=== PATIENT | male | born 1995 | race Caucasian/White ===

== ENCOUNTER 2017-12-10 16:31 | Emergency (ER) | END 2017-12-10 19:46 | disposition home or self-care (01) ==

== ENCOUNTER 2018-03-18 16:39 | Emergency (ER) | END 2018-03-18 18:12 | disposition home or self-care (01) ==

== ENCOUNTER 2018-11-23 16:40 | Emergency (ER) | payer SELFPAY ==
[~2018-11-23] VITALS: Ht 172.7 cm; Wt 88.0 kg
[~2018-11-23 16:40] MED LIST: ACET325T33 PO; FAMO-96 PO; OMEP20CA16 PO; ONDA8TAB14 PO
[2018-11-23 17:01] VITALS: BP 156/81; PULSE 128; RESP 18; Ht 172.7 cm; Wt 88.0 kg
[2018-11-24] MEDS ORDERED: ONDA4TAB8 PO (12:58)
[2018-11-24] MEDS ORDERED: FAMO-96 PO (12:58)
== END 2018-11-23 22:16 | disposition left against medical advice (07) ==
LOC: FTE 16:40
DX: Z53.21 Procedure and treatment not carried out due to patient leaving prior to being seen by health care provider (principal)

== ENCOUNTER 2018-11-24 11:57 | Emergency (ER) | payer SELFPAY ==
[~2018-11-24] VITALS: Wt 89.0 kg
[2018-11-24 11:59] VITALS: BP 139/76; PULSE 90; RESP 18
[2018-11-24] MEDS ORDERED: ONDA4TAB8 PO (12:58)
[2018-11-24] MEDS ORDERED: FAMO-96 PO (12:58)
--- NOTE | 2018-11-24 13:01 | ERD ---
ER Documentation Chief Complaint Chief Complaint VOMITING HPI 23-year-old male presents the emergency department complaining of vomiting for 1 year. Patient states her for 1 year he has a burning sensation in his epigastric area with occasional nonbilious nonbloody emesis. He reports that this is been ongoing and chronic but not worse. He has been previous evaluated with normal diagnostic tests including lab work and ultrasound. Today he denies any localizing abdominal pain, fevers, diarrhea. ROS All systems reviewed and are negative except as per history of present illness. Medications Home Meds Active Scripts Famotidine* (Pepcid*) 20 Mg Tablet, 20 MG PO BID for 4 Days, #20 TAB Prov:HAO TRAYLOR 11/24/18 Ondansetron Hcl* (Zofran*) 4 Mg Tablet, 4 MG PO Q8H PRN for NAUSEA AND/OR VOMITING, #30 TAB Prov:HAO TRAYLOR 11/24/18 Acetaminophen* (Tylenol*) 325 Mg Tablet, 2 TAB PO Q6 PRN for PAIN AND OR ELEVATED TEMP, #30 TAB Prov:ENA REYEZ PA-C 03/18/18 Ondansetron (Ondansetron Odt) 8 Mg Tab.rapdis, 8 MG PO Q6H PRN for NAUSEA AND/OR VOMITING, #30 TAB Prov:ENA REYEZ PA-C 03/18/18 Omeprazole* (Omeprazole*) 20 Mg Capsule.dr, 20 MG PO BEFORE BREAKFAST, #30 Prov:ENA REYEZ PA-C 03/18/18 Famotidine* (Pepcid*) 20 Mg Tablet, 20 MG PO QHS for 7 Days, TAB Prov:ENA REYEZ PA-C 03/18/18 Allergies Allergies: Coded Allergies: No Known Allergy (Unverified , 03/18/18) PMhx/Soc History of Surgery: No Anesthesia Reaction: No Hx Neurological Disorder: No Hx Respiratory Disorders: No Hx Cardiac Disorders: No Hx Psychiatric Problems: No Hx Miscellaneous Medical Probl: Yes (anxiety) Hx Alcohol Use: No Hx Substance Use: Yes (marijuana) Hx Tobacco Use: No FmHx Noncontributory for chief complaint Physical Exam Vitals Vital Signs Date Temp Pulse Resp B/P (MAP) Pulse Ox O2 O2 Flow FiO2 Time Delivery Rate 11/24/18 97.6 90 18 139/76 99 11:59 (97) Physical Exam GENERAL: The patient is well developed and appropriate for usual state of health in no apparent distress HEENT: Pupils equal, round, and reactive to light. EOMI. There is no scleral icterus. NECK: C-spine is soft and supple, there is no meningismus. There is no cervical lymphadenopathy. LUNGS: Clear to auscultation bilaterally. There are no rales, wheezes or rhonchi. HEART: Regular rate and rhythm, no murmurs, clicks, rubs or gallops. ABDOMEN: Soft, non-tender, non-distended. There are bowel sounds in all four quadrants. No rebound or guarding. EXTREMITIES: There is no peripheral cyanosis or edema. No focal swelling or erythema. NEURO: The patient moves all four extremities with 5/5 strength. Cranial nerves II - XII are intact. Normal gait. Alert and oriented SKIN: There is no apparent rash or petechiae. HEME/LYMPHATIC: There is no evidence of excessive bruising or lymphedema. PSYCHIATRIC: The patient does not appear anxious or depressed. Procedures/MDM Patient was taken to a room, seen and examined Medical decision makin-year-old male presents with vomiting in the setting of significant marijuana use. Patient's had previous diagnostic evaluation that has not demonstrated cholecystitis or other significant intra-abdominal concerns. His abdominal examination is benign with no evidence of appendicitis. His history is indicative of a chronic abdominal pain likely a gastritis versus cannabis hyperemesis syndrome. At this time he has no evidence of dehydration, no evidence of appendicitis, cholecystitis or other high risk intra-abdominal concerns. He appears clinically well for outpatient supportive care. Departure Diagnosis: Primary Impression: Vomiting Condition: Stable Patient Instructions: Understanding Marijuana Abuse, Vomiting (6Y-Adult) Additional Instructions: See your doctor for follow-up as discussed. Take a copy of your test results, if appropriate, to this follow-up visit. See your doctor or return here if your symptoms do not improve as expected. At any time, please return to the emergency department for any change or worsening in her symptoms. HAO TRAYLOR Nov 24, 2018 13:01
== END 2018-11-24 14:59 | disposition left against medical advice (07) ==
LOC: FTE 11:57
DX: R11.10 Vomiting, unspecified (principal)
CPT/HCPCS: 99283